=== PATIENT | female | born 1980 | race Caucasian/White ===

== ENCOUNTER 2019-05-02 01:45 | Emergency (ER) | payer MEDICAID ==
[~2019-05-02] VITALS: Ht 160 cm; Wt 60.3 kg
--- NOTE | 2019-05-02 02:04 | NUR ---
PT SHEILA 86 AND [employer] FROM HOME FOR POSSIBLE SUICIDE, PT WAS FOUND BY FRIEND WITH EMPTY BOTTLE OF SEROQUEL 200MG PRESCRIBED TO DIFFERENT PERSON. PER SORAIDA STATES "FRIEND WAS INFORMED BY PT SHE WAS GOING TO COMMIT SUICIDE AND WILL LEAVE A LETTER FOR DAUGHTER" DIANNED DID NOT FIND A LETTER. PT AOX4 RR EVEN AND UNLABORED. PT STATES NORMALLY TAKES 100MG SEROQUEL. NO NVD AT THIS TIME. PT GOWNED AND PLACED ON MONITOR. PT PLACED ON SAFETY PRECAUTION. WAITING FOR MD CAI.
--- NOTE | 2019-05-02 02:16 | NUR ---
DR. MITCHELL AT BEDSIDE FOR EVAL, [employer] AT BEDSIDE. REPORT GIVEN TO HECTOR JENKINS
--- NOTE | 2019-05-02 02:28 | NUR ---
LAB AT BEDSIDE FOR BLOOD DRAW
[2019-05-02 02:34] LABS: BASOPHILS # (AUTO) 0.1 /CMM (0.0-0.2); BASOPHILS % (AUTO) 0.8 % (0.0-2.0); EOSINOPHILS % (AUTO) 1.4 % (0.0-6.0); HEMATOCRIT 39 % (33-45); HEMOGLOBIN 13.3 g/dL (11.5-14.8); LYMPHOCYTES # (AUTO) 2.1 /CMM (0.8-4.8); LYMPHOCYTES % (AUTO) 29.6 % (20.0-44.0); MEAN CORPUSCULAR HGB CONC 34 g/dl (31.0-36.0); MEAN CORPUSCULAR VOLUME 95 fL (82-100); MONOCYTES # (AUTO) 0.5 /CMM (0.1-1.30); NEUTROPHILS # (AUTO) 4.4 /CMM (1.8-8.9); NEUTROPHILS % (AUTO) 61.2 % (43.0-81.0); PLATELET COUNT (AUTO) 359 /CMM (150-450); RED BLOOD CELL COUNT(AUTO) 4.16 MIL/uL (4.0-5.2); WHITE BLOOD COUNT (AUTO) 7.1 K/uL (4.3-11.0)
--- NOTE | 2019-05-02 02:37 | NUR ---
SPOKE TO [employer] FOR 5150 HOLD, PER [employer] PT WAS NEVER PLACE ON A HOLD. DR. MITCHELL MADE AWARE.
[2019-05-02 02:46] LABS: CALCIUM, SERUM 8.5 mg/dL (8.5-10.1); CARBON DIOXIDE 21 mmol/L (21-32); CHLORIDE 105 mmol/L (98-107); CREATININE 0.8 mg/dL (0.6-1.3); GLUCOSE 90 mg/dL (74-106); POTASSIUM 3.4 mmol/L (3.5-5.1); SODIUM SERUM 141 mmol/L (136-145); UREA NITROGEN, BLOOD 9 mg/dL (7-18)
[2019-05-02 02:52] LABS: ALANINE AMINOTRANSFERASE 30 U/L (12-78); ALBUMIN 3.2 g/dL (3.4-5.0); ALCOHOL, BLOOD 97 mg/dL (0-0); ALKALINE PHOSPHATASE 44 U/L (46-116); ASPARTATE AMINOTRANSFERASE 20 U/L (15-37); BILIRUBIN,DIRECT 0.1 mg/dL (0.0-0.2); BILIRUBIN,TOTAL 0.3 mg/dL (0.2-1.0); TOTAL PROTEIN, SERUM 6.7 g/dL (6.4-8.2)
[2019-05-02 02:55] LABS: ACETAMINOPHEN < 2 ug/ml (10-30); SALICYLATE 1.3 mg/dL (2.8-20.0)
--- NOTE | 2019-05-02 03:11 | NUR ---
DR. MITCHELL ON THE PHONE WITH POISON CONTROL. PEAK DISTRIBUTION FOR SEROQUIL FOR 2HRS. MONITOR FOR TACHYCARDIA AND HYPOTENSION.
--- NOTE | 2019-05-02 03:47 | NUR ---
PT AMBULATORY TO RESTROOM WITH STEADY GAIT. URINE COLLECTED AND SENT TO LAB. PT AAOX4. CALM AND COOPERATIVE. NO ACUTE DISTRESS NOTED AT THIS TIME
[2019-05-02 03:50] LABS: APPEARANCE,URINE Clear (CLEAR); BILIRUBIN,URINE Negative (NEGATIVE); BLOOD, URINE Small Ery/uL (NEGATIVE); COLOR,URINE Yellow (YELLOW); KETONES,URINE Trace (NEGATIVE); LEUKOCYTE ESTERASE ,URINE Negative (NEGATIVE); NITRITE, URINE Negative (NEGATIVE); PH,URINE 5.5 (5.0-8.0); PROTEIN,URINE Negative (NEGATIVE); UGLUCOSE Negative (NEGATIVE); UROBILINOGEN,URINE 0.2 EU/dL (0.2)
--- NOTE | 2019-05-02 03:50 | NUR ---
PT CALM AND COOPERATIVE. RESTRAINT REMOVED
[2019-05-02 05:42] LABS: BACTERIA,URINE Many /HPF (None Seen); RBC,URINE 0-2 /HPF (0-2)
[2019-05-02 05:43] LABS: SQUAMOUS EPITHELIAL CELL,UR Moderate /HPF (None Seen)
--- NOTE | 2019-05-02 06:00 | NUR ---
CALLED [facility] SPOKE TO REJI, WAITING FOR [facility] MD CALL BACK.
--- NOTE | 2019-05-02 06:12 | NUR ---
DR. MITCHELL SPEAKING TO [facility] .
--- NOTE | 2019-05-02 07:32 | NUR ---
WILL ENDORSE TO [facility] FOR CONTINUITY OF CARE.
--- NOTE | 2019-05-02 08:16 | NUR ---
JOSE MARTIN FROM [facility] CALLED FOR F/U
--- NOTE | 2019-05-02 08:18 | NUR ---
RECIEVED A CALL FROM [facility]. PER CARLOS "PATIENT IS A [employer] AND DOESN'T HAVE PSYCHIATRIC COVERAGE. YOU CAN GO A HEAD PLACE THE PATIENT FOR FURTHER CARE". CN MADE AWARE.
--- NOTE | 2019-05-02 08:19 | NUR ---
DARRON CALLED FOR PSYCH EVAL
--- NOTE | 2019-05-02 08:50 | NUR ---
[facility] AT BEDSIDE FOR EVAL.
--- NOTE | 2019-05-02 08:54 | NUR ---
DIRECTOR OF GOLF/PET here to see patient. Cleared for discharge
[2019-05-02 09:25] VITALS: BP 122/82
--- NOTE | 2019-05-02 09:25 | NUR ---
For discharge- Patient discharged to home in stable condition. Written and verbal after care instructions given. Patient verbalizes understanding of instruction.
== END 2019-05-02 09:27 | disposition home or self-care (01) ==
LOC: ER 01:52
DX: T43.591A Poisoning by other antipsychotics and neuroleptics, accidental (unintentional), initial encounter (principal); Y92.89 Other specified places as the place of occurrence of the external cause
CPT/HCPCS: 36415; 80048; 80076; 80305; 80307; 80329; 81001; 85025; 87086; 93005; 99284; G0480; 81000-TC